=== PATIENT | male | born 1985 | race Caucasian/White ===

== ENCOUNTER 2020-03-12 16:33 | Emergency (ER) | payer MEDICAID, OTHER ==
[2020-03-12 16:43] VITALS: BP 140/98
[2020-03-12] MEDS ORDERED: LIDOCAINE 2% INJ (20 MG/ML) 20 ML MDV INJ ONE (17:42)
--- NOTE | 2020-03-12 18:07 | RADIOLOGY REPORT (SQ) ---
EXAM DESCRIPTION: HAND BILATERAL 3 VIEWS IMAGES COMPLETED DATE/TIME: 03/12/2020 5:58 pm REASON FOR STUDY: hand pain/fb ? COMPARISON: None. EXAM PARAMETERS: NUMBER OF VIEWS: Three views. TECHNIQUE: AP, lateral and oblique radiographic images acquired of the right and left hand. LIMITATIONS: None. FINDINGS: MINERALIZATION: Normal. BONES: No acute fracture or dislocation. No worrisome bone lesions. JOINTS: No effusions. SOFT TISSUES: No soft tissue swelling. No foreign body. OTHER: No other significant finding. IMPRESSION: Negative study the right and left hands. No evidence of acute injury. No foreign katerina s. TECHNICAL DOCUMENTATION: JOB ID: [id number] 2010 [employer]- All Rights Reserved Reading location - IP/workstation name: [email or web address]
--- NOTE | 2020-03-12 18:40 | ER Document Report ---
ED General - General Chief Complaint: Insect Bite Stated Complaint: POSSIBLE SPIDER BITES/FINGER,PALM Time Seen by Provider: 03/12/20 17:41 Primary Care Provider: MITCH,NO [Primary Care Provider] - Follow up as needed Mode of Arrival: Ambulatory Information source: Patient - HPI Onset: Other - several weeks ago Onset/Duration: Gradual Quality of pain: Achy Severity: Moderate Associated symptoms: None Exacerbated by: Denies Relieved by: Denies Notes: pt states he has brown recluse spiders living in wounds in his hands bilaterally. Past Medical History - General Information source: Patient - Social History Smoking Status: Current Every Day Smoker Frequency of alcohol use: None Drug Abuse: None Family History: Reviewed & Not Pertinent Review of Systems - Review of Systems Constitutional: denies: Chills, Fever Cardiovascular: denies: Chest pain, Palpitations Respiratory: denies: Cough, Short of breath -: Yes All other systems reviewed and negative Physical Exam - Vital signs Vitals: Temp Pulse Resp BP Pulse Ox 98.9 F 113 H 22 H 140/98 H 98 03/12/20 16:42 03/12/20 16:42 03/12/20 16:42 03/12/20 16:42 03/12/20 16:42 Interpretation: Normal - General General appearance: Appears well, Alert - HEENT Head: Normocephalic, Atraumatic Eyes: Normal Pupils: PERRL - Respiratory Respiratory status: No respiratory distress Chest status: Nontender Breath sounds: Normal Chest palpation: Normal - Cardiovascular Rhythm: Tachycardia Heart sounds: Normal auscultation Murmur: No - Abdominal Inspection: Normal Distension: No distension Bowel sounds: Normal Tenderness: Nontender Organomegaly: No organomegaly - Back Back: Normal, Nontender - Extremities General upper extremity: Other - pt has deep ulcer on palm of right hand that has no drainage or odor. does not appear acutely infected. Also has abrasion on dorsal surface. left index finger has tender area that seems most c/w "blood blister" General lower extremity: Normal inspection, Nontender, Normal color, Normal ROM, Normal temperature, Normal weight bearing. No: Zeferino's sign - Neurological Neuro grossly intact: Yes Cognition: Normal Orientation: AAOx4 Narciso Coma Scale Eye Opening: Spontaneous [place] Coma Scale Verbal: Oriented [place] Coma Scale Motor: Obeys Commands [place] Coma Scale Total: 15 Speech: Normal Motor strength normal: LUE, RUE, LLE, RLE Sensory: Normal - Psychological Associated symptoms: Anxious, Restlessness - Skin Skin Temperature: Warm Skin Moisture: Dry Skin Color: Erythema Course - Re-evaluation Re-evalutation: 03/12/20 18:39 Pt insists he has spiders living in his hands. xrays neg for fb. I lanced "blood blister" and explored. blood only under surface. He stated I needed to explore deeper to find the spider. I informed him this was not indicated. - Vital Signs Vital signs: Temp Pulse Resp BP Pulse Ox 98.9 F 113 H 22 H 140/98 H 98 03/12/20 16:42 03/12/20 16:42 03/12/20 16:42 03/12/20 16:42 03/12/20 16:42 Discharge - Discharge Clinical Impression: Hand ulceration Qualifiers: Non-pressure ulcer stage: with fat layer exposed Qualified Code(s): L98.492 - Non-pressure chronic ulcer of skin of other sites with fat layer exposed Condition: Stable Disposition: HOME, SELF-CARE Additional Instructions: It is very important that you follow up with Dr. Gonzalez or a medical provider in the next week to recheck your wounds. Prescriptions: Cephalexin Monohydrate [Keflex 500 mg Capsule] 500 mg PO Q6H 5 Days capsule Referrals: NICHO GONZALEZ JR, DO [ACTIVE PROVISIONAL STAFF] - Follow up in 3-5 days
[2020-03-12] MEDS ORDERED: MUPIROCIN 2% OINTMENT 22 GM TP ONE (18:42)
== END 2020-03-12 19:21 | disposition home or self-care (01) ==
LOC: ER 16:33
DX: L98.492 Non-pressure chronic ulcer of skin of other sites with fat layer exposed (principal); F17.200 Nicotine dependence, unspecified, uncomplicated
CPT/HCPCS: 99283; 73130; J3490